=== PATIENT | male | born 1960 | race Caucasian/White ===

== ENCOUNTER 2019-08-01 10:24 | Emergency (ER) | payer MEDICARE ==
[2019-08-01 11:04] VITALS: BP 122/87
[2019-08-01] MEDS ORDERED: oxyCODONE /ACETAMINOPHEN 5-325MG TAB PO ONE (11:29)
--- NOTE | 2019-08-01 11:43 | Emergency Department Report ---
ED Fall HPI - General Chief Complaint: Fall Stated Complaint: BACK PAIN Time Seen by Provider: 08/01/19 11:25 Source: patient Mode of arrival: Wheelchair - History of Present Illness Initial Comments: Pt with CC of fall yesterday after losing footing, hitting L side ribs No head injury or LOC -: Sudden, Last night Fall From: standing When Fall Occurred: 24 hours [employer] Fall Witnessed: yes, by family Place Fall Occurred: home Loss of Consciousness: none Prolonged Down Time?: no Symptoms Prior to Fall: none Location: chest Severity: severe Severity scale (0 -10): 8 Quality: sharp Context: tripped/slipped Associated Symptoms: denies - Related Data Previous Rx's Medication Instructions Recorded Last Taken Type Ibuprofen [Motrin] 600 mg PO Q8H PRN #50 tablet 09/27/15 Unknown Rx Lidocaine [Lidoderm] 1 each TP DAILY #30 adh..patch 08/01/19 Unknown Rx oxyCODONE /ACETAMINOPHEN [Percocet 1 tab PO Q6HR PRN #15 tablet 08/01/19 Unknown Rx 5/325 mg] Allergies Allergy/AdvReac Type Severity Reaction Status Date / Time No Known Allergies Allergy Unverified 09/13/15 08:06 ED Review of Systems ROS: Stated complaint: BACK PAIN Other details as noted in HPI Comment: All other systems reviewed and negative Musculoskeletal: as per HPI ED Past Medical Hx - Past Medical History Previous Medical History?: Yes Hx Diabetes: Yes Additional medical history: back pain, osteoarthritis. - Surgical History Past Surgical History?: No - Social History Smoking Status: Never Smoker Substance Use Type: None - Medications Home Medications: Home Medications Medication Instructions Recorded Confirmed Last Taken Type Ibuprofen [Motrin] 600 mg PO Q8H PRN #50 tablet 09/27/15 Unknown Rx Lidocaine [Lidoderm] 1 each TP DAILY #30 adh..patch 08/01/19 Unknown Rx oxyCODONE /ACETAMINOPHEN [Percocet 1 tab PO Q6HR PRN #15 tablet 08/01/19 Unknown Rx 5/325 mg] ED Physical Exam - General Limitations: No Limitations General appearance: alert, in no apparent distress - Head Head exam: Present: atraumatic, normocephalic - Eye Eye exam: Present: normal appearance, PERRL, EOMI - ENT ENT exam: Present: mucous membranes moist - Neck Neck exam: Present: normal inspection, full ROM. Absent: tenderness - Respiratory Respiratory exam: Present: normal lung sounds bilaterally, chest wall tenderness (over L posterior and lateral ribs). Absent: respiratory distress, wheezes - Cardiovascular Cardiovascular Exam: Present: regular rate, normal rhythm. Absent: systolic murmur, diastolic murmur, rubs, gallop - GI/Abdominal GI/Abdominal exam: Present: soft, normal bowel sounds. Absent: tenderness, guarding, rebound - Rectal Rectal exam: Present: deferred - Extremities Exam Extremities exam: Present: normal inspection, full ROM - Back Exam Back exam: Present: normal inspection. Absent: vertebral tenderness - Neurological Exam Neurological exam: Present: alert, oriented X3 - Psychiatric Psychiatric exam: Present: normal affect, normal mood - Skin Skin exam: Present: warm, dry, intact, normal color. Absent: rash ED Course Vital Signs 08/01/19 11:02 Temperature 98 F Pulse Rate 86 Respiratory 16 Rate Blood Pressure 122/87 [Left] O2 Sat by Pulse 99 Oximetry ED Medical Decision Making - Radiology Data Radiology results: report reviewed, image reviewed interpreted by me: single L sided rib fx, no PTX - Medical Decision Making Pt fell onto ribs w/o other injuries Ribs ttp L posterolateral NO abd pain/ttp, NO flank bruising, NO vertebral tenderness given percocet for pain, imaging pending single L side nondisplaced rib fx on my interpretation of plain films given meds for pain and incentive spirometer fu pcp - Differential Diagnosis fx, contusion, low suspicion for intraabdominal/intrathoracic injury Critical care attestation.: If time is entered above; I have spent that time in minutes in the direct care of this critically ill patient, excluding procedure time. ED Disposition Clinical Impression: Left rib fracture Qualifiers: Encounter type: initial encounter Rib fracture type: single rib Fracture type: closed Qualified Code(s): S22.32XA - Fracture of one rib, left side, initial encounter for closed fracture Disposition: - TO HOME OR SELFCARE Is pt being admited?: No Condition: Good Instructions: Rib Fracture (ED) Prescriptions: Lidocaine [Lidoderm] 1 each TP DAILY #30 adh..patch oxyCODONE /ACETAMINOPHEN [Percocet 5/325 mg] 1 tab PO Q6HR PRN #15 tablet PRN Reason: Pain Referrals: SARITHA JOLLYE MD [Staff Physician] - 3-5 Days Time of Disposition: 12:15
--- NOTE | 2019-08-01 11:52 | XRay Report ---
EXAMINATION: Left rib radiograph series with PA chest radiograph, 08/01/2019 CLINICAL INFORMATION: Left-sided rib pain. No history of trauma is given. COMPARISON: None. FINDINGS: No displaced left-sided rib fractures or focal rib lesion is identified. The accompanying PA chest radiograph demonstrates no evidence of acute cardiopulmonary process. IMPRESSION: No radiographic evidence of acute bony abnormality of the left ribs. Signer Name: Marie Meyers MD Signed: 08/01/2019 11:47 AM Workstation Name: [id number]
== END 2019-08-01 13:04 | disposition home or self-care (01) ==
LOC: ED 10:24
DX: S22.32XA Fracture of one rib, left side, initial encounter for closed fracture (principal); E11.9 Type 2 diabetes mellitus without complications; M54.9 Dorsalgia, unspecified; M19.90 Unspecified osteoarthritis, unspecified site; Z79.899 Other long term (current) drug therapy; W01.198A Fall on same level from slipping, tripping and stumbling with subsequent striking against other object, initial encounter; Y93.89 Activity, other specified; Y92.009 Unspecified place in unspecified non-institutional (private) residence as the place of occurrence of the external cause; Y99.8 Other external cause status

== ENCOUNTER 2020-02-11 10:20 | Emergency (ER) | payer SELFPAY ==
[2020-02-11] MEDS ORDERED: ASPIRIN 325 MG TAB ONE (10:36)
[2020-02-11 10:39] VITALS: BP 130/93
[2020-02-11] MEDS ORDERED: ASPIRIN 325 MG TAB PO ONE (10:40)
--- NOTE | 2020-02-11 11:12 | XRay Report ---
CHEST 2 VIEWS INDICATION: MAIN: chest pain X 3 MONTHS. COMPARISON: 08/01/2019 FINDINGS: Support devices: None. Heart: Within normal limits. Lungs: No acute air space or interstitial disease. Pleura: No significant pleural effusion. No pneumothorax. Additional findings: None. IMPRESSION: 1. No acute findings. Signer Name: Ean Parmar MD Signed: 02/11/2020 11:07 AM Workstation Name: [id number]
[2020-02-11 11:16] LABS: Basophils % (Auto) 0.1 % (0.0-1.8); Eosinophils # (Auto) 0.1 K/mm3 (0.0-0.4); Eosinophils % (Auto) 1.3 % (0.0-4.3); Hematocrit 43.1 % (35.5-45.6); Hemoglobin 14.7 gm/dl (11.8-15.2); Lymphocytes # (Auto) 1.6 K/mm3 (1.2-5.4); Lymphocytes % (Auto) 34.4 % (13.4-35.0); Mean Corpuscular HGB Conc 34 % (32-34); Mean Corpuscular Volume 98 fl (84-94); Monocytes # (Auto) 0.5 K/mm3 (0.0-0.8); Monocytes % (Auto) 10.7 % (0.0-7.3); Platelet Count 250 K/mm3 (140-440); Red Cell Distribution Width 13.5 % (13.2-15.2)
[2020-02-11 11:40] LABS: Alanine Aminotransferase 21 units/L (7-56); Albumin 4.6 g/dL (3.9-5); BUN/Creatinine Ratio 12; Blood Urea Nitrogen 13 mg/dL (9-20); Calcium 9.7 mg/dL (8.4-10.2); Hemolysis Index 5
== END 2020-02-11 13:15 | disposition left against medical advice (07) ==
LOC: ED 10:20
DX: R07.89 Other chest pain (principal); R42 Dizziness and giddiness; Z53.21 Procedure and treatment not carried out due to patient leaving prior to being seen by health care provider
CPT/HCPCS: 36415; 71046; 80053; 83880; 84484; 85025; 93005

== ENCOUNTER 2021-04-08 19:13 | Emergency (ER) | payer MEDICARE ==
[2021-04-08 20:18] VITALS: BP 143/98
--- NOTE | 2021-04-08 20:59 | Emergency Department Report ---
- General Chief Complaint: Sore Throat Stated Complaint: SORE THROAT/NECK PAIN Time Seen by Provider: 04/08/21 20:22 Source: patient, family Mode of arrival: Ambulatory Limitations: No Limitations - History of Present Illness Initial Comments: Language interpretation by patient's with patient's permission Patient is a 60-year-old male who presents emergency room with complaints of URI symptoms that began 2 to 3 days ago. He has associated sore throat, discomfort with swallowing, bilateral ear pain, neck discomfort, body aches, dry cough. He reports that he has a subjective fever. He denies any shortness of breath, chest pain, neck stiffness, headache, vision changes, vomiting, diarrhea, abdominal pain. He denies any known sick contacts or recent travel. He states he received his second dose of COVID-19 vaccine approximately 2 weeks ago. PMHx HTN, DM, HLD. Allergy to codeine. - Related Data Previous Rx's Medication Instructions Recorded Last Taken Type Ibuprofen [Motrin] 600 mg PO Q8H PRN #50 tablet 09/27/15 Unknown Rx Lidocaine [Lidoderm] 1 each TP DAILY #30 adh..patch 08/01/19 Unknown Rx oxyCODONE /ACETAMINOPHEN [Percocet 1 tab PO Q6HR PRN #15 tablet 08/01/19 Unknown Rx 5/325 mg] Ciprofloxacin HCl [Ciprofloxacin 500 mg PO BID 7 Days #14 tab 04/23/20 Unknown Rx TAB] Docusate Sodium [Colace] 100 mg PO BID PRN #14 capsule 04/23/20 Unknown Rx Polyethylene Glycol 3350 [Miralax] 7 gm PO DAILY PRN #1 powder 04/23/20 Unknown Rx Promethazine [Phenergan] 25 mg PO Q8HR PRN #10 tab 04/23/20 Unknown Rx metroNIDAZOLE [Flagyl] 500 mg PO BID 7 Days #14 tab 04/23/20 Unknown Rx Benzonatate [Tessalon Perles] 100 mg PO Q8HR PRN #12 capsule 04/08/21 Unknown Rx Fluticasone [Flonase] 1 spray NS QDAY #1 bottle 04/08/21 Unknown Rx Nystas/Diphen/Xyl Visc/Mylanta 30 ml MM Q4H PRN #300 ml 04/08/21 Unknown Rx [Magic Mouthwash] guaiFENesin/DEXTROMETHORPHAN 1 each PO Q6HR PRN #14 capsule 04/08/21 Unknown Rx [Coricidin Hbp Chest Chris-Cough] methOCARBAMOL [Robaxin TAB] 500 mg PO BID PRN #14 tab 04/08/21 Unknown Rx Allergies Allergy/AdvReac Type Severity Reaction Status Date / Time codeine Allergy Itching Verified 02/11/20 10:36 ED Review of Systems ROS: Stated complaint: SORE THROAT/NECK PAIN Other details as noted in HPI Comment: All other systems reviewed and negative ED Past Medical Hx - Past Medical History Previous Medical History?: Yes Hx Hypertension: Yes Hx Diabetes: Yes Hx Kidney Stones: Yes Additional medical history: back pain, osteoarthritis. HIGH CHOLESTROL - Surgical History Past Surgical History?: Yes Additional Surgical History: Abd hernia surgery - Social History Smoking Status: Current Every Day Smoker Substance Use Type: None - Medications Home Medications: Home Medications Medication Instructions Recorded Confirmed Last Taken Type Ibuprofen [Motrin] 600 mg PO Q8H PRN #50 tablet 09/27/15 Unknown Rx Lidocaine [Lidoderm] 1 each TP DAILY #30 adh..patch 08/01/19 Unknown Rx oxyCODONE /ACETAMINOPHEN [Percocet 1 tab PO Q6HR PRN #15 tablet 08/01/19 Unknown Rx 5/325 mg] Ciprofloxacin HCl [Ciprofloxacin 500 mg PO BID 7 Days #14 tab 04/23/20 Unknown Rx TAB] Docusate Sodium [Colace] 100 mg PO BID PRN #14 capsule 04/23/20 Unknown Rx Polyethylene Glycol 3350 [Miralax] 7 gm PO DAILY PRN #1 powder 04/23/20 Unknown Rx Promethazine [Phenergan] 25 mg PO Q8HR PRN #10 tab 04/23/20 Unknown Rx metroNIDAZOLE [Flagyl] 500 mg PO BID 7 Days #14 tab 04/23/20 Unknown Rx Benzonatate [Tessalon Perles] 100 mg PO Q8HR PRN #12 capsule 04/08/21 Unknown Rx Fluticasone [Flonase] 1 spray NS QDAY #1 bottle 04/08/21 Unknown Rx Nystas/Diphen/Xyl Visc/Mylanta 30 ml MM Q4H PRN #300 ml 04/08/21 Unknown Rx [Magic Mouthwash] guaiFENesin/DEXTROMETHORPHAN 1 each PO Q6HR PRN #14 capsule 04/08/21 Unknown Rx [Coricidin Hbp Chest Chris-Cough] methOCARBAMOL [Robaxin TAB] 500 mg PO BID PRN #14 tab 04/08/21 Unknown Rx ED Physical Exam - General Limitations: No Limitations General appearance: alert, in no apparent distress - Head Head exam: Present: atraumatic, normocephalic - Eye Eye exam: Present: normal appearance - ENT ENT exam: Present: normal orophraynx, mucous membranes moist, TM's normal bilaterally, normal external ear exam - Neck Neck exam: Present: normal inspection, tenderness (bilateral c-spine paraspinal muscular ttp, no midline C-spine ttp, no step offs, no deformities ), full ROM. Absent: meningismus - Respiratory Respiratory exam: Present: normal lung sounds bilaterally. Absent: respiratory distress, wheezes, rales, rhonchi, stridor, chest wall tenderness, accessory muscle use, decreased breath sounds, prolonged expiratory - Cardiovascular Cardiovascular Exam: Present: regular rate, normal rhythm, normal heart sounds. Absent: systolic murmur, diastolic murmur, rubs, gallop - Neurological Exam Neurological exam: Present: alert, oriented X3 - Psychiatric Psychiatric exam: Present: normal affect, normal mood - Skin Skin exam: Present: warm, dry, intact ED Course Vital Signs 04/08/21 20:14 Temperature 98.8 F Pulse Rate 84 Respiratory 18 Rate Blood Pressure 143/98 O2 Sat by Pulse 97 Oximetry ED Medical Decision Making - Medical Decision Making Language interpretation by patient's with patient's permission Patient is a 60-year-old male who presents emergency room with complaints of URI symptoms that began 2 to 3 days ago. He has associated sore throat, discomfort with swallowing, bilateral ear pain, neck discomfort, body aches, dry cough. He reports that he has a subjective fever. He denies any shortness of breath, chest pain, neck stiffness, headache, vision changes, vomiting, diarrhea, abdominal pain. He denies any known sick contacts or recent travel. He states he received his second dose of COVID-19 vaccine approximately 2 weeks ago. PMHx HTN, DM, HLD. Allergy to codeine. Vitals are normal. On exam breath sounds are clear bilaterally, no wheezing, no rales, no rhonchi, no stridor, normal oropharynx, normal TMs and canals bilaterally, no tonsillar exudates or hypertrophy, no posterior oropharynx erythema, uvula is midline, no uvular edema or deviation, no meningeal signs, bilateral c-spine paraspinal muscular ttp, no midline C-spine ttp, no step offs, no deformities. Patient has only had symptoms for 2 to 3 days, symptoms and examination are most consistent with viral URI. Patient has no clinical signs of bacterial pneumonia or bacterial bronchitis at this time. Discussed the importance of close primary care follow- up. Discussed strict return precautions. Patient given prescriptions for symptomatic relief. Advised patient Please take medications as prescribed. Increase your water intake. May alternate Tylenol and then ibuprofen as needed for fever or body aches. Follow-up with a primary care doctor for reexamination. Return to emergency room immediately for any new or worsening symptoms. Critical care attestation.: If time is entered above; I have spent that time in minutes in the direct care of this critically ill patient, excluding procedure time. ED Disposition Clinical Impression: URI (upper respiratory infection) Qualifiers: URI type: unspecified URI Qualified Code(s): J06.9 - Acute upper respiratory infection, unspecified Disposition: DC- TO HOME OR SELFCARE Is pt being admited?: No Does the pt Need Aspirin: No Condition: Stable Instructions: Viral Respiratory Infection Additional Instructions: Please take medications as prescribed. Increase your water intake. May alternate Tylenol and then ibuprofen as needed for fever or body aches. Follow- up with a primary care doctor for reexamination. Return to emergency room immediately for any new or worsening symptoms. Prescriptions: guaiFENesin/DEXTROMETHORPHAN [Coricidin Hbp Chest Chris-Cough] 1 each PO Q6HR PRN #14 capsule PRN Reason: cough/congestion Fluticasone [Flonase] 1 spray NS QDAY #1 bottle Nystas/Diphen/Xyl Visc/Mylanta [Magic Mouthwash] 30 ml MM Q4H PRN #300 ml PRN Reason: sore throat methOCARBAMOL [Robaxin TAB] 500 mg PO BID PRN #14 tab PRN Reason: muscle spasm/pain Benzonatate [Tessalon Perles] 100 mg PO Q8HR PRN #12 capsule PRN Reason: cough Referrals: ADDIE MESA MD [Primary Care Provider] - 2-3 Days Time of Disposition: 20:57 Print Language: LATVIAN
== END 2021-04-08 21:20 | disposition home or self-care (01) ==
LOC: ED 19:13
DX: J06.9 Acute upper respiratory infection, unspecified (principal); I10 Essential (primary) hypertension; E11.9 Type 2 diabetes mellitus without complications; F17.200 Nicotine dependence, unspecified, uncomplicated; Z98.890 Other specified postprocedural states; Z79.1 Long term (current) use of non-steroidal anti-inflammatories (NSAID); Z79.2 Long term (current) use of antibiotics; Z79.899 Other long term (current) drug therapy; Z88.8 Allergy status to other drugs, medicaments and biological substances
CPT/HCPCS: 99282

== ENCOUNTER 2021-08-17 11:49 | Emergency (ER) | payer MEDICARE ==
[2021-08-17 11:57] VITALS: BP 122/78
--- NOTE | 2021-08-17 12:40 | Emergency Department Report ---
- General Chief Complaint: Upper Respiratory Infection Stated Complaint: COUGHING Time Seen by Provider: 08/17/21 12:27 Source: patient, family () Mode of arrival: Ambulatory Limitations: Language Barrier - History of Present Illness Initial Comments: 61-year-old male is brought to the emergency department by his for cough, congestion, fevers, and vomiting for 1 month. The symptoms are usually worse at night, especially the fever. The fever has been subjective. The patient states that he has chest pain, but usually with eating and due to the coughing. His sputum is white and he denies hemoptysis. He has been complaining of being lightheaded and dizzy recently and yesterday felt like he was going to pass out. MD Complaint: fever (Subjective), cough, nasal congestion, other Onset/Timin -: Gradual, month(s) Severity: moderate Quality: dull, aching Consistency: constant Improves With: nothing Worsens With: activity Associated Symptoms: fever, chills, nasal congestion, abdominal pain, nausea, vomiting Treatments Prior to Arrival: Acetaminophen, Ibuprofen - Related Data Previous Rx's Medication Instructions Recorded Last Taken Type Ibuprofen [Motrin] 600 mg PO Q8H PRN #50 tablet 09/27/15 Unknown Rx Lidocaine [Lidoderm] 1 each TP DAILY #30 adh..patch 08/01/19 Unknown Rx oxyCODONE /ACETAMINOPHEN [Percocet 1 tab PO Q6HR PRN #15 tablet 08/01/19 Unknown Rx 5/325 mg] Ciprofloxacin HCl [Ciprofloxacin 500 mg PO BID 7 Days #14 tab 04/23/20 Unknown Rx TAB] Docusate Sodium [Colace] 100 mg PO BID PRN #14 capsule 04/23/20 Unknown Rx Polyethylene Glycol 3350 [Miralax] 7 gm PO DAILY PRN #1 powder 04/23/20 Unknown Rx Promethazine [Phenergan] 25 mg PO Q8HR PRN #10 tab 04/23/20 Unknown Rx metroNIDAZOLE [Flagyl] 500 mg PO BID 7 Days #14 tab 04/23/20 Unknown Rx Benzonatate [Tessalon Perles] 100 mg PO Q8HR PRN #12 capsule 04/08/21 Unknown Rx Fluticasone [Flonase] 1 spray NS QDAY #1 bottle 04/08/21 Unknown Rx Nystas/Diphen/Xyl Visc/Mylanta 30 ml MM Q4H PRN #300 ml 04/08/21 Unknown Rx [Magic Mouthwash] guaiFENesin/DEXTROMETHORPHAN 1 each PO Q6HR PRN #14 capsule 04/08/21 Unknown Rx [Coricidin Hbp Chest Chris-Cough] methOCARBAMOL [Robaxin TAB] 500 mg PO BID PRN #14 tab 04/08/21 Unknown Rx Potassium Chloride [K-Dur] 20 meq PO QDAY #7 tablet 08/17/21 Unknown Rx Promethazine Dm (Nf) [Phenergan Dm 5 ml PO Q6H PRN #120 08/17/21 Unknown Rx 6.25/15 mg 5 ml] cephALEXin [Keflex] 500 mg PO Q12HR #20 cap 08/17/21 Unknown Rx Allergies Allergy/AdvReac Type Severity Reaction Status Date / Time codeine Allergy Itching Verified 08/17/21 11:51 ED Review of Systems ROS: Stated complaint: COUGHING Other details as noted in HPI Comment: All other systems reviewed and negative Constitutional: chills, fever, weakness ENT: congestion Respiratory: cough, shortness of breath Cardiovascular: chest pain. denies: palpitations, edema, syncope Gastrointestinal: abdominal pain, nausea, vomiting. denies: diarrhea, hematemesis, melena, hematochezia Neurological: headache ED Past Medical Hx - Past Medical History Hx Hypertension: Yes Hx Diabetes: Yes Hx Kidney Stones: Yes Additional medical history: back pain, osteoarthritis. HIGH CHOLESTROL - Surgical History Additional Surgical History: Abd hernia surgery - Social History Smoking Status: Current Every Day Smoker Substance Use Type: None - Medications Home Medications: Home Medications Medication Instructions Recorded Confirmed Last Taken Type Ibuprofen [Motrin] 600 mg PO Q8H PRN #50 tablet 09/27/15 Unknown Rx Lidocaine [Lidoderm] 1 each TP DAILY #30 adh..patch 08/01/19 Unknown Rx oxyCODONE /ACETAMINOPHEN [Percocet 1 tab PO Q6HR PRN #15 tablet 08/01/19 Unknown Rx 5/325 mg] Ciprofloxacin HCl [Ciprofloxacin 500 mg PO BID 7 Days #14 tab 04/23/20 Unknown Rx TAB] Docusate Sodium [Colace] 100 mg PO BID PRN #14 capsule 04/23/20 Unknown Rx Polyethylene Glycol 3350 [Miralax] 7 gm PO DAILY PRN #1 powder 04/23/20 Unknown Rx Promethazine [Phenergan] 25 mg PO Q8HR PRN #10 tab 04/23/20 Unknown Rx metroNIDAZOLE [Flagyl] 500 mg PO BID 7 Days #14 tab 04/23/20 Unknown Rx Benzonatate [Tessalon Perles] 100 mg PO Q8HR PRN #12 capsule 04/08/21 Unknown Rx Fluticasone [Flonase] 1 spray NS QDAY #1 bottle 04/08/21 Unknown Rx Nystas/Diphen/Xyl Visc/Mylanta 30 ml MM Q4H PRN #300 ml 04/08/21 Unknown Rx [Magic Mouthwash] guaiFENesin/DEXTROMETHORPHAN 1 each PO Q6HR PRN #14 capsule 04/08/21 Unknown Rx [Coricidin Hbp Chest Chris-Cough] methOCARBAMOL [Robaxin TAB] 500 mg PO BID PRN #14 tab 04/08/21 Unknown Rx Potassium Chloride [K-Dur] 20 meq PO QDAY #7 tablet 08/17/21 Unknown Rx Promethazine Dm (Nf) [Phenergan Dm 5 ml PO Q6H PRN #120 08/17/21 Unknown Rx 6.25/15 mg 5 ml] cephALEXin [Keflex] 500 mg PO Q12HR #20 cap 08/17/21 Unknown Rx ED Physical Exam - General Limitations: Language Barrier General appearance: alert, in no apparent distress - Head Head exam: Present: atraumatic, normocephalic - Eye Eye exam: Present: normal appearance - ENT ENT exam: Present: mucous membranes moist - Neck Neck exam: Present: normal inspection - Respiratory Respiratory exam: Present: normal lung sounds bilaterally, rhonchi. Absent: respiratory distress - Cardiovascular Cardiovascular Exam: Present: regular rate, normal rhythm, tachycardia. Absent: systolic murmur, diastolic murmur, rubs, gallop - GI/Abdominal GI/Abdominal exam: Present: soft, normal bowel sounds - Rectal Rectal exam: Present: deferred - Extremities Exam Extremities exam: Present: normal inspection - Back Exam Back exam: Present: normal inspection - Neurological Exam Neurological exam: Present: alert, oriented X3 - Psychiatric Psychiatric exam: Present: normal affect, normal mood - Skin Skin exam: Present: warm, dry, intact, normal color. Absent: rash ED Course Vital Signs 08/17/21 11:55 Temperature 98.7 F Pulse Rate 106 H Respiratory 20 Rate Blood Pressure 122/78 O2 Sat by Pulse 95 Oximetry ED Medical Decision Making - Lab Data Result diagrams: 08/17/21 12:57 08/17/21 12:57 - Radiology Data Radiology results: report reviewed, image reviewed interpreted by me: No acute findings - Medical Decision Making 61-year-old male presented to the emergency department with his for cough and congestion for at least 1 month. He states that he has been telling his doctor but he will not do anything about it. He is starting to feel worse. He has been having some dizziness, but family admits that this is not new either. He denies any fevers, hemoptysis, chest pain, palpitations, or lower extremity swelling. His evaluation today shows a low potassium level, but otherwise normal work-up. I will treat his potassium. I will send him home with medications and strict instructions to follow-up with his primary care provider. All questions were answered and they voiced understanding and agreement with this plan. Critical care attestation.: If time is entered above; I have spent that time in minutes in the direct care of this critically ill patient, excluding procedure time. ED Disposition Clinical Impression: Bronchitis Disposition: 01 HOME / SELF CARE / HOMELESS Is pt being admited?: No Does the pt Need Aspirin: No Condition: Stable Instructions: Chronic Bronchitis (ED), Upper Respiratory Infection, Adult, [id number] Prescriptions: Potassium Chloride [K-Dur] 20 meq PO QDAY #7 tablet cephALEXin [Keflex] 500 mg PO Q12HR #20 cap Promethazine Dm (Nf) [Phenergan Dm 6.25/15 mg 5 ml] 5 ml PO Q6H PRN #120 PRN Reason: Cough
--- NOTE | 2021-08-17 13:09 | XRay Report ---
CHEST 2 VIEWS INDICATION / CLINICAL INFORMATION: cough, fever x 1 month. COMPARISON: 04/23/2020 FINDINGS: SUPPORT DEVICES: None. HEART / MEDIASTINUM: No significant abnormality. LUNGS / PLEURA: No significant pulmonary or pleural abnormality. No pneumothorax. ADDITIONAL FINDINGS: No significant additional findings. IMPRESSION: 1. No acute findings. Signer Name: Clifton Cai MD Signed: 08/17/2021 1:04 PM Workstation Name: [id number]
[2021-08-17 13:33] LABS: Hematocrit 42.6 % (35.5-45.6); Hemoglobin 14.5 gm/dl (11.8-15.2); Mean Corpuscular HGB Conc 34 % (32-34); Mean Corpuscular Volume 96 fl (84-94); Platelet Count 256 K/mm3 (140-440); Red Blood Count 4.45 M/mm3 (3.65-5.03); Red Cell Distribution Width 13.1 % (13.2-15.2)
[2021-08-17 13:58] LABS: Alanine Aminotransferase 20 units/L (7-56); Albumin 4.4 g/dL (3.9-5); BUN/Creatinine Ratio 14; Blood Urea Nitrogen 13 mg/dL (9-20); Calcium 9.2 mg/dL (8.4-10.2); Hemolysis Index 6
[2021-08-17] MEDS ORDERED: POTASSIUM CHLORIDE ER 20 MEQ TAB PO ONE (14:21)
== END 2021-08-17 15:25 | disposition home or self-care (01) ==
LOC: ED 11:49
DX: J40 Bronchitis, not specified as acute or chronic (principal); I10 Essential (primary) hypertension; E11.9 Type 2 diabetes mellitus without complications; F17.200 Nicotine dependence, unspecified, uncomplicated; Z88.5 Allergy status to narcotic agent
CPT/HCPCS: 36415; 71046; 80053; 83735; 85027; 99284

== ENCOUNTER 2021-11-24 14:09 | Emergency (ER) | payer MEDICARE ==
--- NOTE | 2021-11-24 18:33 | Emergency Department Report ---
HPI - General Chief Complaint: Medical Clearance Time Seen by Provider: 11/24/21 18:14 - HPI HPI: MSE 3 The patient is a 61-year-old male present with a chief complaint of abdominal pain. The patient states for the past 3 months whenever he tries to eat or drink his pain in his chest and epigastric region. Patient states he saw his primary physician about this in the past but has not given the diagnosis. The patient states his primary physician prescribed him a pill he does not recall the name. Patient states he is never seen a habilitation specialist about the above complaints. Patient also admits to a cough occasionally productive of yellow sp utum for the same amount of time. Patient currently denies pain at this moment. ED Past Medical Hx - Past Medical History Previous Medical History?: Yes Hx Hypertension: Yes Hx Diabetes: Yes Hx Kidney Stones: Yes Additional medical history: back pain, osteoarthritis. HIGH CHOLESTROL - Surgical History Additional Surgical History: Abd hernia surgery - Family History Family history: no significant - Social History Smoking Status: Current Some Day Smoker Substance Use Type: None (Denies illicit drug use) - Medications Home Medications: Home Medications Medication Instructions Recorded Confirmed Last Taken Type Ibuprofen [Motrin] 600 mg PO Q8H PRN #50 tablet 09/27/15 Unknown Rx Lidocaine [Lidoderm] 1 each TP DAILY #30 adh..patch 08/01/19 Unknown Rx oxyCODONE /ACETAMINOPHEN [Percocet 1 tab PO Q6HR PRN #15 tablet 08/01/19 Unkn own Rx 5/325 mg] Ciprofloxacin HCl [Ciprofloxacin 500 mg PO BID 7 Days #14 tab 04/23/20 Unknown Rx TAB] Docusate Sodium [Colace] 100 mg PO BID PRN #14 capsule 04/23/20 Unknown Rx Polyethylene Glycol 3350 [Miralax] 7 gm PO DAILY PRN #1 powder 04/23/20 Unknown Rx Promethazine [Phenergan] 25 mg PO Q8HR PRN #10 tab 04/23/20 Unknown Rx metroNIDAZOLE [Flagyl] 500 mg PO BID 7 Days #14 tab 04/23/20 Unknown Rx Benzonatate [Tessalon Perles] 100 mg PO Q8HR PRN #12 capsule 04/08/21 Unknown Rx Fluticasone [Flonase] 1 spray NS QDAY #1 bottle 04/08/21 Unknown Rx Nystas/Diphen/Xyl Visc/Mylanta 30 ml MM Q4H PRN #300 ml 04/08/21 Unknown Rx [Magic Mouthwash] guaiFENesin/DEXTROMETHORPHAN 1 each PO Q6HR PRN #14 capsule 04/08/21 Unknown Rx [Coricidin Hbp Chest Chris-Cough] methOCARBAMOL [Robaxin TAB] 500 mg PO BID PRN #14 tab 04/08/21 Unknown Rx Potassium Chloride [K-Dur] 20 meq PO QDAY #7 tablet 08/17/21 Unknown Rx Promethazine Dm (Nf) [Phenergan Dm 5 ml PO Q6H PRN #120 08/17/21 Unknown Rx 6.25/15 mg 5 ml] cephALEXin [Keflex] 500 mg PO Q12HR #20 cap 08/17/21 Unknown Rx Famotidine [Pepcid] 20 mg PO BID #30 tablet 11/24/21 Unknown Rx Ondansetron [Zofran ODT TAB] 8 mg PO Q8HR #20 tab.rapdis 11/24/21 Unknown Rx traMADoL [Ultram] 50 mg PO Q6HR PRN #14 tablet 11/24/21 Unknown Rx ED Review of Systems ROS: Stated complaint: SORE THROAT/STOMACH PAIN Other details as noted in HPI Constitutional: fever ("Sometimes") Eyes: denies: eye pain ENT: denies: congestion Respiratory: cough Cardiovascular: as per HPI Endocrine: no symptoms reported Gastrointestinal: abdominal pain, constipation. denies: nausea, vomiting, diarrhea Genitourinary: denies: dysuria Musculoskeletal: denies: back pain Neurological: denies: headache Physical Exam - Physical Exam Vital Signs: Vital Signs 11/24/21 14:26 Temperature 98.3 F Pulse Rate 101 H Respiratory 18 Rate Blood Pressure 114/79 O2 Sat by Pulse 96 Oximetry Physical Exam: GENERAL: The patient is well-developed well-nourished male lying on stretcher not appearing to be in acute distress. [] HEENT: Normocephalic. Atraumatic. Extraocular motions are intact. Patient has moist mucous membranes. NECK: Supple. Trachea midline. No stridor CHEST/LUNGS: Clear to auscultation. There is no respiratory distress noted. HEART/CARDIOVASCULAR: Regular. There is no tachycardia. There is no gallop rub or murmur. ABDOMEN: Abdomen is soft, with mild tenderness to palpation of the left lower quadrant. No rebound or guarding. Patient has normal bowel sounds. There is no abdominal distention. SKIN: There is no rash. There is no edema. There is no diaphoresis. NEURO: The patient is awake, alert, and oriented. The patient is cooperative. The patient has no focal neurologic deficits. The patient has normal speech. GCS 15 MUSCULOSKELETAL: There is no evidence of acute injury. ED Course Vital Signs 11/24/21 14:26 Temperature 98.3 F Pulse Rate 101 H Respiratory 18 Rate Blood Pressure 114/79 O2 Sat by Pulse 96 Oximetry ED Medical Decision Making - Lab Data Result diagrams: 11/24/21 18:47 11/24/21 18:47 Laboratory Tests 11/24/21 11/24/21 18:47 18:47 WBC 6.3 RBC 4.40 Hgb 14.5 Hct 42.6 MCV 97 H MCH 33 H MCHC 34 RDW 13.4 Plt Count 255 Lymph % (Auto) 45.2 H Mora % (Auto) 9.8 H Eos % (Auto) 2.6 Baso % (Auto) 0.6 Lymph # (Auto) 2.9 Mora # (Auto) 0.6 Eos # (Auto) 0.2 Baso # (Auto) 0.0 Seg Neutrophils % 41.8 Seg Neutrophils # 2.6 Sodium 139 Potassium 3.1 L Chloride 100.1 Carbon Dioxide 25 Anion Gap 17 BUN 12 Creatinine 1.0 Estimated GFR > 60 BUN/Creatinine Ratio 12 Glucose 122 H Calcium 9.7 Total Bilirubin 0.50 AST 16 ALT 14 Alkaline Phosphatase 65 Total Protein 7.8 Albumin 4.4 Albumin/Globulin Ratio 1.3 Lipase 16 - Radiology Data Radiology results: report reviewed (Chest x-ray, CT abdomen pelvis), image reviewed (Chest x-ray, CT abdomen pelvis) interpreted by me: Chest x-ray-no definite focal infiltrates, no pneumothorax [facility] [address] [place] [address] Cat Scan Report Signed Patient: ROMARIO AMBROSE MR#: [id number] 72 : 1960 Acct:[id number] Age/Sex: 61 / M ADM Date: 11/24/21 Loc: ED Attending Dr: Ordering Physician: HENOK CALIXTO MD Date of Service: 11/24/21 Procedure(s): CT abdomen pelvis w con Accession Number(s): [id number] cc: HENOK CALIXTO MD CT ABDOMEN AND PELVIS WITH CONTRAST INDICATION / CLINICAL INFORMATION: Epigastric pain with meals, LLQ tenderness. TECHNIQUE: Axial CT images were obtained through the abdomen and pelvis after 100 cc Omnipaque [address] scans at this location are performed using CT dose reduction for ALARA by means of automated exposure control. COMPARISON: CT abdomen and pelvis with contrast from 04/23/2020. FINDINGS: LOWER CHEST: No significant abnormality. LIVER: No significant abnormality. GALLBLADDER: No significant abnormality. BILE DUCTS: No significant abnormality. PANCREAS: No significant abnormality. SPLEEN: No significant abnormality. ADRENALS: No significant abnormality of the right adrenal gland. Stable mild nodularity and coarse calcification of the left adrenal gland. RIGHT KIDNEY/URETER: There are multiple nonobstructive stones throughout the right kidney measuring up to 2 mm. No other significant abnormality. LEFT KIDNEY/URETER: An anterior midpole left renal simple cyst measures up to 1.1 cm. No other significant abnormality. STOMACH/SMALL BOWEL: There is nonspecific mild thickening along the gastric antrum/pylorus. No other significant abnormality. COLON: There is generalized noninflamed diverticulosis. No other significant abnormality. APPENDIX: No significant abnormality. PERITONEUM: No free fluid. No free air. No fluid collection. LYMPH NODES: No significant adenopathy. VASCULATURE: There is mild aortoiliac atherosclerosis without other significant abnormalities. URINARY BLADDER: No significant abnorm ality. REPRODUCTIVE ORGANS: The prostate gland is moderately enlarged and mildly calcified. ADDITIONAL FINDINGS: Unchanged, uncomplicated fat-containing small right inguinal hernia. BONES: No acute findings. There are similar mild degenerative changes of the spine and pelvis. IMPRESSION: 1. Nonspecific distal gastric thickening. Given these findings and the patient's symptoms, EGD may be helpful for further evaluation. 2. No other acute findings to explain the patient's pain. Signer Name: Carmelo Medina MD Signed: 11/24/2021 8:36 PM Workstation Name: [id number] Transcribed By: JUAN Dictated By: Carmelo Medina MD Electronically Authenticated By: Carmelo Medina MD Signed Date/Time: 11/24/212035 DD/ 29 TD/TT: Print Cancel [facility] [address] [place] [id number] XRay Report Signed Patient: ROMARIO AMBROSE MR#: [id number] 72 : 1960 Acct:[id number] Age/Sex: 61 / M ADM Date: 11/24/21 Loc: ED Attending Dr: Ordering Physician: HENOK CALIXTO MD Date of Service: 11/24/21 Procedure(s): XR chest routine 2V Accession Number(s): [id number] cc: HENOK CALIXTO MD Fluoro Time In Minutes: CHEST 2 VIEWS INDICATION / CLINICAL INFORMATION: Cough. Dysphagia x3 months. COMPARISON: 2 views of the chest from 08/17/2021 FINDINGS: SUPPORT DEVICES: None. HEART / MEDIASTINUM: No significant abnormality. LUNGS / PLEURA: No significant pulmonary abnormality. No significant pleural effusion. No pneumothorax. ADDITIONAL FINDINGS: No significant additional findings. IMPRESSION: 1. No acute abnormality of the chest. Signer Name: Carmelo Medina MD Signed: 11/24/2021 7:43 PM Workstation Name: [id number] Transcribed By: [place] Dictated By: Carmelo Medina MD Electronically Authenticated By: Carmelo Medina MD Signed Date/Time: 11/24/211942 DD/ 41 TD/TT: Print Cancel - Differential Diagnosis Dysphagia, pancreatitis, gastritis, diverticulitis, pneumonia Critical care attestation.: If time is entered above; I have spent that time in minutes in the direct care of this critically ill patient, excluding procedure time. ED Disposition Clinical Impression: Abdominal pain Disposition: 01 HOME / SELF CARE / HOMELESS Is pt being admited?: No Does the pt Need Aspirin: No Condition: Stable Instructions: Abdominal Pain, Adult, [id number], Upper Endoscopy, Adult, Care After Additional Instructions: Return to the emergency department should you develop worsening symptoms, inability to tolerate food or liquids, high fever or any other concerns Prescriptions: Famotidine [Pepcid] 20 mg PO BID #30 tablet traMADoL [Ultram] 50 mg PO Q6HR PRN #14 tablet PRN Reason: Pain Ondansetron [Zofran ODT TAB] 8 mg PO Q8HR #20 tab.rapdis Referrals: FLOYD GOMEZ MD [Staff Physician] - 3-5 Days (Dr. Gomez is a habilitation specialist. Please follow-up with him for further evaluation) Time of Disposition: 21:03
[2021-11-24 19:16] LABS: Basophils % (Auto) 0.6 % (0.0-1.8); Eosinophils # (Auto) 0.2 K/mm3 (0.0-0.4); Eosinophils % (Auto) 2.6 % (0.0-4.3); Hematocrit 42.6 % (35.5-45.6); Hemoglobin 14.5 gm/dl (11.8-15.2); Lymphocytes # (Auto) 2.9 K/mm3 (1.2-5.4); Lymphocytes % (Auto) 45.2 % (13.4-35.0); Mean Corpuscular HGB Conc 34 % (32-34); Mean Corpuscular Volume 97 fl (84-94); Monocytes # (Auto) 0.6 K/mm3 (0.0-0.8); Monocytes % (Auto) 9.8 % (0.0-7.3); Platelet Count 255 K/mm3 (140-440); Red Cell Distribution Width 13.4 % (13.2-15.2)
[2021-11-24 19:26] LABS: Alanine Aminotransferase 14 units/L (7-56); Albumin 4.4 g/dL (3.9-5); BUN/Creatinine Ratio 12; Blood Urea Nitrogen 12 mg/dL (9-20); Calcium 9.7 mg/dL (8.4-10.2); Hemolysis Index 9
--- NOTE | 2021-11-24 19:47 | XRay Report ---
CHEST 2 VIEWS INDICATION / CLINICAL INFORMATION: Cough. Dysphagia x3 months. COMPARISON: 2 views of the chest from 08/17/2021 FINDINGS: SUPPORT DEVICES: None. HEART / MEDIASTINUM: No significant abnormality. LUNGS / PLEURA: No significant pulmonary abnormality. No significant pleural effusion. No pneumothora x. ADDITIONAL FINDINGS: No significant additional findings. IMPRESSION: 1. No acute abnormality of the chest. Signer Name: Carmelo Medina MD Signed: 11/24/2021 7:43 PM Workstation Name: [id number]
--- NOTE | 2021-11-24 20:41 | Cat Scan Report ---
CT ABDOMEN AND PELVIS WITH CONTRAST INDICATION / CLINICAL INFORMATION: Epigastric pain with meals, LLQ tenderness. TECHNIQUE: Axial CT images were obtained through the abdomen and pelvis after 100 cc Omnipaque [address] scans at this location are performed using CT dose reduction for ALARA by means of automated exposure control. COMPARISON: CT abdomen and pelvis with contrast from 04/23/2020. FINDINGS: LOWER CHEST: No significant abnormality. LIVER: No significant abnormality. GALLBLADDER: No significant abnormality. BILE DUCTS: No significant abnormality. PANCREAS: No significant abnormality. SPLEEN: No significant abnormality. ADRENALS: No significant abnormality of the right adrenal gland. Stable mild nodularity and coarse ca lcification of the left adrenal gland. RIGHT KIDNEY/URETER: There are multiple nonobstructive stones throughout the right kidney measuring u p to 2 mm. No other significant abnormality. LEFT KIDNEY/URETER: An anterior midpole left renal simple cyst measures up to 1.1 cm. No other signif icant abnormality. STOMACH/SMALL BOWEL: There is nonspecific mild thickening along the gastric antrum/pylorus. No other significant abnormality. COLON: There is generalized noninflamed diverticulosis. No other significant abnormality. APPENDIX: No significant abnormality. PERITONEUM: No free fluid. No free air. No fluid collection. LYMPH NODES: No significant adenopathy. VASCULATURE: There is mild aortoiliac atherosclerosis without other significant abnormalities. URINARY BLADDER: No significant abnormality. REPRODUCTIVE ORGANS: The prostate gland is moderately enlarged and mildly calcified. ADDITIONAL FINDINGS: Unchanged, uncomplicated fat-containing small right inguinal hernia. BONES: No acute findings. There are similar mild degenerative changes of the spine and pelvis. IMPRESSION: 1. Nonspecific distal gastric thickening. Given these findings and the patient's symptoms, EGD may be helpful for further evaluation. 2. No other acute findings to explain the patient's pain. Signer Name: Carmelo Medina MD Signed: 11/24/2021 8:36 PM Workstation Name: [id number]
[2021-11-24] MEDS ORDERED: POTASSIUM CHLORIDE ER 20 MEQ TAB PO ONE (21:01)
[2021-11-24 21:27] VITALS: BP 130/86
== END 2021-11-24 21:28 | disposition home or self-care (01) ==
LOC: ED 14:09
DX: R10.13 Epigastric pain (principal); R07.89 Other chest pain; I10 Essential (primary) hypertension; E11.9 Type 2 diabetes mellitus without complications; F17.200 Nicotine dependence, unspecified, uncomplicated; Z88.5 Allergy status to narcotic agent; Z79.899 Other long term (current) drug therapy
CPT/HCPCS: 36415; 71046; 74177; 80053; 83690; 85025; 99284; Q9967

== ENCOUNTER 2022-06-14 10:56 | Outpatient (CLI) | payer MEDICARE ==
[2022-06-14 11:28] LABS: Hematocrit 44.1 % (35.5-45.6); Hemoglobin 15.2 gm/dl (11.8-15.2); Mean Corpuscular HGB Conc 34 % (32-34); Mean Corpuscular Volume 95 fl (84-94); Platelet Count 317 K/mm3 (140-440); Red Blood Count 4.63 M/mm3 (3.65-5.03); Red Cell Distribution Width 13.7 % (13.2-15.2)
[2022-06-14 11:44] LABS: ABG HCO3 24.9 mmol/L (20.0-26.0); ABG Methemoglobin 0.4 % (0.0-1.5); ABG Oxygen Saturation 97.1 % (95.0-99.0); ABG PCO2 37.6 mm Hg; ABG PH 7.438 pH Units (7.350-7.450); ABG PO2 88.5 mm Hg (80.0-90.0)
[2022-06-14 12:00] LABS: Alanine Aminotransferase 12 units/L (7-56); Albumin 4.4 g/dL (3.9-5); BUN/Creatinine Ratio 11; Blood Urea Nitrogen 12 mg/dL (9-20); Calcium 9.7 mg/dL (8.4-10.2); Chol/HDL Ratio 4.73 %; HDL Cholesterol 46 mg/dL (40-59); Hemolysis Index 8; LDL Cholesterol,Direct 147 mg/dL (50-130)
== END 2022-06-14 10:57 | disposition home or self-care (01) ==
LOC: LAB 10:56
PROVIDERS: ATTEND Internal Medicine
DX: J44.9 Chronic obstructive pulmonary disease, unspecified (principal); I10 Essential (primary) hypertension
CPT/HCPCS: 36415; 80053; 80061; 82785; 82803; 84436; 84443; 85027